=== PATIENT | male | born 1995 ===

== ENCOUNTER 2018-09-05 17:19 | Emergency (ER) | payer BC ==
--- NOTE | 2018-09-05 17:34 | UC ---
Laceration HPI - HPI Summary HPI Summary: 23 yo male presents s/p fall. He tells me that about 1 hour [employer] he was at his girlfriend's house and fell going down the stairs outside. His chin and mouth hit the ground. No LOC. He bandaged the area and came to [facility] on tetanus. He is a [employer] student graduating in a few days. He currently has mild pain mostly at the lac sites, but also in his right jaw and front teeth. - History Of Current Complaint Chief Complaint: UCLaceration Stated Complaint: LIP LACERATION Time Seen by Provider: 09/05/18 17:33 Hx Obtained From: Patient Laceration Location: Face Mechanism Of Injury: Blunt Trauma Onset/Duration: Sudden Onset Severity: Mild Pain Intensity: 2 Pain Scale Used: 0-10 Numeric - Allergies/Home Medications Allergies/Adverse Reactions: Allergies Allergy/AdvReac Type Severity Reaction Status Date / Time No Known Allergies Allergy Verified 09/05/18 17:32 Home Medications: Home Medications levETIRAcetam [Keppra] 3,500 mg PO 09/05/18 [History] PMH/Surg Hx/FS Hx/Imm Hx - Additional Past Medical History Additional PMH: None - Surgical History Surgical History: None - Family History Known Family History: Positive: None - Social History Occupation: Student Lives: Dormitory/Roommates Alcohol Use: Weekly Substance Use Type: None Smoking Status (MU): Light Every Day Tobacco Smoker Type: eCigarettes Review of Systems All Other Systems Reviewed And Are Negative: Yes Constitutional: Positive: Negative Skin: Positive: Other - Laceration lower lip and chin Eyes: Positive: Negative Respiratory: Positive: Negative Cardiovascular: Positive: Negative Gastrointestinal: Positive: Negative Neurovascular: Positive: Negative Musculoskeletal: Positive: Other: - Right TMJ pain Neurological: Positive: Negative Psychological: Positive: Negative Physical Exam - Summary Physical Exam Summary: GENERAL: NAD. WDWN. SKIN: Lower lip: left aspect with 8mm stellate shaped laceration with 5-10mm of gaping. Chin: 2.5cm linear laceration just through the dermis 5mm width. HEENT: Head: No raccoon eyes or battles sign. Eyes: PERRLA. EOM intact. Conjunctiva clear without inflammation or discharge. Ears: Hearing grossly normal. TMs intact, no bulging, erythema, or edema. No hemotympanum Nose: Nasal mucosa pink and moist. NTTP maxillary and frontal sinus. Throat: Posterior oropharynx without exudates, erythema, or tonsillar enlargement. Uvula midline. DENTAL: Tooth #9 and #10 with slight posterior angulation. No fracture or root exposure. No gum injury. NECK: Supple. Nontender. FROM CHEST: CTAB. No r/r/w. No accessory muscle use. Breathing comfortably and in no distress. CV: RRR. Without m/r/g. Pulses intact. Brisk cap refill. MSK: FROM in B/L UEs and LEs with symmetric strength. Mild trismus and pain with opening mouth. Right TMJ TTP. Jaw opens symmetrically without deviation. NEURO: A&Ox3. 3 word recall, remote, recent memory, ability to follow 2-step directions, and attention intact. CN: II: Peripheral adkins intact. Vision normal. III, IV, : EOMI. No nystagmus. PERRLA. V: Sensations intact and symmetric. Opens mouth and clenches teeth. VII: No facial asymmetry. Forehead wrinkles. Grins, shuts eyes, frowns, puffs cheeks. VIII: Hearing intact to finger rub. IX, X: Swallows and coughs. Uvula midline. XI: Shrugs shoulders. Turns head against resistance. XII: No tongue deviation [id number] are intact. Gait with normal base. Romberg: maintains balance, no pronator drift. Normal speech. No facial drooping. PSYCH: Age appropriate behavior. Triage Information Reviewed: Yes Vital Signs: Initial Vital Signs Temp 99.0 F 09/05/18 17:29 Pulse 76 09/05/18 17:29 Resp 18 09/05/18 17:29 BP 130/87 09/05/18 17:29 Pulse Ox 98 09/05/18 17:29 Vital Signs Reviewed: Yes Laceration Repair - Laceration Repair 1 Procedure Summary: Lip Description: Stellate Laceration Size After Repair: Length (cm) - 0.8 Modified For Repair: No Anesthesia Used: 2.0% Lido Irrigation With Pressure Irrigation Device: Yes Closure Material: Sutures - #2 Closure Method: Single Layer Suture Type: Prolene - 6-0 2 Procedure Summary: Chin Description: Linear Laceration Size After Repair: Length (cm) - 2.5 Modified For Repair: No Anesthesia Used: 2.0% Lido Cleansing Completed Via Routine Prep: Yes Closure Material: Sutures - #6 Closure Method: Single Layer Suture Of: Skin Suture Type: Prolene - 5-0 Laceration Course/Dx - Course/Dx Course Of Treatment: The procedure was explained to the pt and all questions were answered. A time out was performed, witnessed, and signed. The area was irrigated with 50mL sterile saline. 0.5mL of 2% lidocaine without epi was administered and good anesthetization was achieved. In the usual sterile fashion, TWO 6-0 prolene interrupted sutures were placed. Pt tolerated procedure well. CHIN: The area was cleansed with sterile saline. 1mL of 2% lidocaine without epi was administered and good anesthetization was achieved. In the usual sterile fashion, SIX 5-0 prolene interrupted sutures were placed. The wound was bandaged with telfa. Pt tolerated procedure well. XR mandible: IMPRESSION: There appears to be acute displaced fracture of the right mandibular ramus. I attempted to call local Oral surgeon Dr. Stoll at [phone] and left a message. Pt and his friend who drove him did not want to wait any longer and requested to return home and receive a phone call with instruction on what to do regarding his fracture. No return call as of 1999. I called Dr. Rice of [facility] 1944 and return call at [phone]. He states that there is no one locally that manages mandibular fractures. Given this information and inability to acquire specialist eval locally; I called pt and informed him to have his friend drive him to [facility] ED for further evaluation. He was agreeable to this and said that he will have someone drive him now. Nothing po until that time. - Diagnosis Provider Diagnosis: Fall, Lip laceration, Chin laceration, Mandible fracture Discharge - Sign-Out/Discharge Documenting (check all that apply): Patient Departure All imaging exams completed and their final reports reviewed: Yes - Discharge Plan Condition: Stable Disposition: HOME Patient Education Materials: Care For Your Stitches (DC), Laceration (DC), Jaw Fracture in Adults (ED) Referrals: No Primary Care Phys,NOPCP [Primary Care Provider] - Additional Instructions: If you develop a fever, shortness of breath, chest pain, new or worsening symptoms - please call your PCP or go to the ED immediately. 1) Please keep the area bandaged, clean, dry, and intact for the next 24- 48hours. 2) If you develop a fever, colored or thick discharge, increased pain or swelling - please call your PCP or go to the ED. 3) Please have your TWO lip and SIX chin sutures removed in 5 days You will receive a call from me felton, after I hear from the specialist, for further instructions regarding your broken jaw - Billing Disposition and Condition Condition: STABLE Disposition: Home
[2018-09-05] MEDS ORDERED: Lidocaine 2% PF * 5 ML VIAL INJ ONE (17:40)
== END 2018-09-05 19:35 | disposition home or self-care (01) ==
LOC: UCEAST 17:19
DX: S01.511A Laceration without foreign body of lip, initial encounter (principal); S01.81XA Laceration without foreign body of other part of head, initial encounter; S02.641A Fracture of ramus of right mandible, initial encounter for closed fracture; W10.9XXA Fall (on) (from) unspecified stairs and steps, initial encounter; Y92.008 Other place in unspecified non-institutional (private) residence as the place of occurrence of the external cause; F17.290 Nicotine dependence, other tobacco product, uncomplicated
CPT/HCPCS: 12002; 12013; 70110; 99201; G0463